=== PATIENT | female | born 1955 | race Caucasian/White ===

== ENCOUNTER 2017-08-31 12:04 | Emergency (ER) | payer OTHER, BC ==
[~2017-08-31 12:04] MED LIST: ASPI81TA94 PO; CET10 PO; HYDR-4309 PO; OXYC-865 PO; RAN150 PO
[2017-08-31] MEDS ORDERED: OMEP-125 PO (12:19)
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
[2017-08-31 12:37] VITALS: BP 150/94
== END 2017-08-31 12:37 | disposition home or self-care (01) ==
LOC: ER 12:19
DX: S06.0X0A Concussion without loss of consciousness, initial encounter (principal); W22.8XXA Striking against or struck by other objects, initial encounter
CPT/HCPCS: 99281

== ENCOUNTER → 2018-06-28 | Outpatient (CLI) | payer BC ==
[~2018-06-28] MED LIST changes: -HYDR-4309 PO; +HYDR-653 PO; +OMEP-125 PO
== END ==
LOC: LAB 17:16
PROVIDERS: ATTEND Family Medicine
DX: M79.10 Myalgia, unspecified site (principal); M25.50 Pain in unspecified joint; J09.X2 Influenza due to identified novel influenza A virus with other respiratory manifestations
CPT/HCPCS: 87502